=== PATIENT | male | born 1955 | race Hispanic/Latino ===

== ENCOUNTER 2018-09-03 11:22 | Day surgery (SDC) | payer MEDICAID ==
[2018-08-31 09:12] VITALS: BMI 25.7
[2018-09-03 12:27] VITALS: O2SAT 98
[2018-09-03] MEDS ORDERED: Propofol 10 mg/ml Inj (20 ML) ONE (13:23)
[2018-09-03] MEDS ORDERED: Midazolam 2 MG/2 ML VIAL ONE (13:23)
[2018-09-03] MEDS ORDERED: Bupivacaine 0.25% 20 ML INJ IJ ONE (13:29)
[2018-09-03] MEDS ORDERED: Lidocaine Hydrochloride 10 ML INJ ONE ×2 (13:29→13:41)
[2018-09-03] MEDS ORDERED: ceFAZolin 1 gm FROZEN Premix 1 GM/50 ML ML IVPB ONE (13:33)
[2018-09-03] MEDS ORDERED: Lidocaine Hydrochloride 20 ML INJ ONE (13:45)
[2018-09-03] MEDS ORDERED: Bupivacaine 0.75% Inj(30mL) ONE (13:46)
[2018-09-03] MEDS ORDERED: HYDROmorphone 0.5 mg/0.5 ml ISec IVP PRN (14:20)
--- NOTE | 2018-09-03 14:24 | PCM.SURG1 ---
Surgeon's Initial Post Op Note - Surgeon's Notes Surgeon: Fide Sugar Mixer: N/a Type of Anesthesia: General LMA Anesthesia Administered By: staff Pre-Operative Diagnosis: Phimosis Operative Findings: same Post-Operative Diagnosis: same Operation Performed: Circumcision Specimen/Specimens Removed: foreskin Estimated Blood Loss: EBL {In ML}: 0 Blood Products Given: N/A Drains Used: No Drains Post-Op Condition: Good Date of Surgery/Procedure: 09/03/18 Time of Surgery/Procedure: 14:24
[2018-09-03 16:04] VITALS: RESP 16; TEMP 97.6
[2018-09-03 16:25] VITALS: BP 127/71; PULSE 68
--- NOTE | 2018-09-03 22:16 | OP ---
PROCEDURE DATE: 09/03/2018 PREOPERATIVE DIAGNOSIS: Phimosis. POSTOPERATIVE DIAGNOSIS: Phimosis. PROCEDURE: Circumcision. FINDINGS: Phimotic unretractable foreskin. DESCRIPTION OF PROCEDURE: The procedure is as follows: The patient was asked to sign a detailed informed consent after receiving explanation of all risks, complications, and alternatives of this procedure. He agreed to accept the risks. He was brought into the room, and he was draped and prepped in the usual manner. Time-out was taken according to the rules and regulations of [facility]. The patient first had a dorsal slit performed. The foreskin was forcibly retracted, and the interior was cleaned. When this was complete, the two Allis clamps were placed on the tip of the dorsal slit on either side, and the foreskin was pulled forward. Two circumferential incisions were made on the exterior and interior foreskin, and they were connected until the foreskin was amputated. The cut edges were inspected for any bleeding which was fulgurated with the Bovie, and the skin was reconnected with a 3-0 chromic suture in a discontinuous fashion. A U-stitch was used to reconstitute the frenulum. The patient tolerated the procedure well. Dry sterile dressing was placed on the penis, and the patient was given detailed postoperative instructions in the recovery area. Vito Elizalde MD
== END 2018-09-03 16:28 | disposition home or self-care (01) ==
LOC: C.SDS 11:22
PROVIDERS: ATTEND Urology
DX: N48.0 Leukoplakia of penis (principal); N47.1 Phimosis
CPT/HCPCS: 54161; 88305; J0690; J2250; J2704; J3010